=== PATIENT | male | born 1980 | race Caucasian/White ===

== ENCOUNTER 2018-06-17 06:28 | Day surgery (SDC) | payer OTHER ==
[2018-06-16 08:56] VITALS: BMI 30.9
[2018-06-17] MEDS ORDERED: LIDOCAINE HCL/PF 2% SDV 5ML VIAL ONE (08:42)
[2018-06-17] MEDS ORDERED: KETOROLAC TROMETHAMINE 30 MG/1 ML VIAL ONE (08:42)
[2018-06-17] MEDS ORDERED: PROPOFOL 20 ML ONE (08:43)
[2018-06-17] MEDS ORDERED: MIDAZOLAM HCL 2 MG/2 ML SINGLE DOSE VIAL ONE (08:43)
--- NOTE | 2018-06-17 08:55 | OP ---
Operative Note - Note: Operative Date: 06/17/18 Pre-Operative Diagnosis: L ureteral calculus Operation: ESWL L Findings: 9 mm L distal ureteral calculus Post-Operative Diagnosis: Same as Pre-op Surgeon: Robert Cruz Anesthesiologist/FOOD MIXER: Nichelle Marie Anesthesia: Fractional Estimated Blood Loss (mls): 0 Operative Report Dictated: Yes
[2018-06-17] MEDS ORDERED: oxyCODONE HCL 5 MG TABLET PO PRN (09:47)
[2018-06-17] MEDS ORDERED: ONDANSETRON 4 MG/2 ML VIAL IVPUSH PRN (09:47)
[2018-06-17] MEDS ORDERED: ACETAMINOPHEN 500 MG TABLET (FP) PO PRN (09:47)
[2018-06-17] MEDS ORDERED: LACTATED RINGERS SOLUTION 1,000 ML IV SCH (10:00)
--- NOTE | 2018-06-17 10:18 | OP ---
DATE OF OPERATION: 06/17/2018 PREOPERATIVE DIAGNOSIS: Left ureteral calculus. POSTOPERATIVE DIAGNOSIS: Left ureteral calculus. PROCEDURE: Extracorporeal shock wave lithotripsy, left ureteral calculus. SURGEON: Robert Cruz MD LOOM SETTER: None. ANESTHESIA: IV sedation. ANESTHESIOLOGIST: Nichelle Marie MD SPECIMENS: None. CULTURES: None. DRAINS: None. ESTIMATED BLOOD LOSS: None. COMPLICATIONS: None. DESCRIPTION OF PROCEDURE: Patient was brought into the operating room, placed on the operating table in supine position. After administration of intravenous sedation, patient was positioned over the treatment head, and under fluoroscopic guidance, a 9-mm radiopaque left distal ureteral calculus was identified, targeted, and delivered 300 shocks at maximum kilovoltage with excellent fragmentation. He tolerated the procedure well and transferred to the recovery room in stable condition. PLAN: Followup in the office as scheduled, stent removal. Donny [id number]
[2018-06-17 10:24] VITALS: TEMP 98
[2018-06-17 13:01] VITALS: BP 137/60; PULSE 100
== END 2018-06-17 12:30 | disposition home or self-care (01) ==
LOC: JASU-SURG 06:28
PROVIDERS: ATTEND Urology
PROC: 0TF7XZZ Fragmentation in Left Ureter, External Approach (ICD-10-PCS; principal; 2018-06-17 09:00)
DX: N20.1 Calculus of ureter (principal)
CPT/HCPCS: 94760

== ENCOUNTER 2018-08-01 10:56 | Day surgery (SDC) | payer OTHER ==
[2018-07-31 14:02] VITALS: BMI 31.5
--- NOTE | 2018-08-01 12:11 | HP ---
History & Physical Update - History History: No Change - Physical Physical: No Change - Assessment Assessment: No Change - Plan Plan: No Change
--- NOTE | 2018-08-01 12:13 | OP ---
Operative Note - Note: Operative Date: 08/01/18 Pre-Operative Diagnosis: L ureteral calculus Operation: L ureteroscopic laser lithotripsy and JJ stent change Findings: L distal ureteral calculus Surgeon: Robert Cruz Anesthesiologist/DATA MANAGEMENT ENGINEER: Lashonda Rajan Anesthesia: General Specimens Removed: L ureteral calculus, L JJ stent Drains & Tubes with Location: 6 fr 24 cm L JJ Operative Report Dictated: Yes
[2018-08-01] MEDS ORDERED: MIDAZOLAM HCL 2 MG/2 ML SINGLE DOSE VIAL ONE ×2 (14:23)
[2018-08-01] MEDS ORDERED: PROPOFOL 20 ML ONE (14:27)
[2018-08-01] MEDS ORDERED: ceFAZolin SODIUM 1 GM VIAL IVPB ONE (14:28)
[2018-08-01] MEDS ORDERED: ceFAZolin SODIUM 1 GM VIAL ONE (14:33)
[2018-08-01] MEDS ORDERED: DEXAMETHASONE SOD PHOSPHATE 4 MG/1 ML VIAL ONE (14:33)
[2018-08-01] MEDS ORDERED: FUROSEMIDE 40 MG/4 ML INJECTABLE VIAL ONE (14:34)
[2018-08-01] MEDS ORDERED: ONDANSETRON 4 MG/2 ML VIAL IVPUSH PRN (15:28)
[2018-08-01] MEDS ORDERED: oxyCODONE HCL 5 MG TABLET PO PRN (15:28)
[2018-08-01] MEDS ORDERED: LACTATED RINGERS SOLUTION 1,000 ML IV SCH (15:30)
[2018-08-01] MEDS ORDERED: ACETAMINOPHEN INJECTION 100 ML IVPB ONE (15:39)
[2018-08-01] MEDS ORDERED: ACETAMINOPHEN 1000 MG/100 ML VIAL (NON FORMULARY) IVPB ONE ×2 (15:42→17:30)
[2018-08-01 17:32] VITALS: BP 125/81; PULSE 60; TEMP 98.2
--- NOTE | 2018-08-02 09:26 | OP ---
DATE OF OPERATION: 08/01/2018 PREOPERATIVE DIAGNOSIS: Left ureteral calculi. POSTOPERATIVE DIAGNOSIS: Left ureteral calculi. PROCEDURE: Left ureteroscopic laser lithotripsy and left double J stent change. SURGEON: Robert Cruz MD DIRECTOR OF COLLECTIONS: None. ANESTHESIA: General via laryngeal mask. ANESTHESIOLOGIST: Lashonda Rajan MD SPECIMENS: Left ureteral calculi. CULTURES: None. DRAINS: A 6-Greenlandic 24-cm right double J stent. ESTIMATED BLOOD LOSS: None. COMPLICATIONS: None. DESCRIPTION OF PROCEDURE: The patient was brought into the operating room and placed on the operating room table in supine position. After administration of general sedation via laryngeal mask, intravenous antibiotics were administered. Sequential compression devices were placed. The patient was placed in the dorsal lithotomy position. The perineum and genitals were prepped and draped in the usual sterile manner. A 22-Greenlandic cystoscope was inserted into the bladder under direct vision. Anterior and posterior urethras were normal. The bladder was entered and thoroughly inspected. There were no tumors, stones, or inflammation. Both ureteral orifices were in the usual location with left double J stent in place. The left double J stent was grasped at its tip and brought to the ureteral meatus. Cannulated with a 0.38 guidewire, which was advanced to the level of the left renal pelvis under fluoroscopic guidance. The double J stent was removed and sent to Pathology as specimen. Now intravenous Lasix was administered and the ureteroscope was now inserted alongside the guidewire to the level of the distal ureter where several calculi were visualized. A 365-micron laser fiber was inserted. Laser lithotripsy was done until the stone was fragmented into minute pieces. Several of the larger pieces were basketed and removed. No additional stones were seen in the entire distal ureter. Retrograde pyelogram was done and demonstrated mild left hydronephrosis. No extravasation of the contrast. No additional stones. The cystoscope was backloaded, and a 6-Greenlandic 24-cm left double J stent was inserted over the guidewire under direct visual and fluoroscopic guidance leaving 1 coil in the renal pelvis and 1 coil in the bladder. The bladder was emptied. Instruments were removed. The stent was secured to the penis with a suture and a Tegaderm. He tolerated the procedure well. Was awoken from anesthesia in the operating room and transferred to recovery room in stable condition. Donny [id number]
--- NOTE | 2018-08-05 16:26 | PATH ---
Surgical Pathology Report Patient Name: HANNY QUIÑONEZ [facility]. Rec. #: [id number] /Age/Gender: 1980 (Age: 38) / M Account: [id number] Location: [facility] SURGICAL Taken: 08/01/2018 Received: 08/04/2018 Reported: 08/05/2018 Physicians: Robert Cruz M.D. Specimen(s) Received A: LEFT URETERAL STENT B: LEFT URETERAL STONE Clinical History Left ureteral stone Final Diagnosis A. OLD, URETERAL STENT, LEFT, REMOVAL: URETERAL STENT. MACROSCOPIC DIAGNOSIS. B. URETERAL STONE, LEFT, REMOVAL: URETEROLITHIASIS. MACROSCOPIC DIAGNOSIS. Electronically Signed Amy Ramirez M.D. Gross Description A. Received fresh labeled "old stent left ureter," is a 35 cm in length blue-white, coiled portion of tubing, consistent with a ureteral stent. No soft tissue is present. No sections are submitted, gross only. B. Received fresh labeled "left ureteral stone," are 2 barajas-marin, irregular calculi measuring 0.3 and 0.4 cm in greatest dimension. The specimen is sent for chemical analysis. /08/04/2018 saudi08/04/2018
== END 2018-08-01 17:40 | disposition home or self-care (01) ==
LOC: JASU-SURG 10:56
PROVIDERS: ATTEND Urology
PROC: 0TF78ZZ Fragmentation in Left Ureter, Via Natural or Artificial Opening Endoscopic (ICD-10-PCS; principal; 2018-08-01 13:30)
PROC: 0T778DZ Dilation of Left Ureter with Intraluminal Device, Via Natural or Artificial Opening Endoscopic (ICD-10-PCS; 2018-08-01 13:30)
DX: N20.1 Calculus of ureter (principal)
CPT/HCPCS: 36415; 82360; 88300-TC; 94760; J0131